=== PATIENT | male | born 1950 | race Caucasian/White ===

== ENCOUNTER → 2017-02-20 | Outpatient (CLI) | payer MEDICARE ==
[~2017-02-20] MED LIST: ALPR1TAB6 PO; AMIT25TA PO; CEFD300C37 PO; DIPH25CA61 PO; GABA300C10 PO; LACT1CAP24 PO; LISI-170 PO; METR500T PO; OXYC1TAB9 PO; PANT40TA5 PO; PRAV40TA2 PO; SIME125T10 PO; STEROID INHALER INH
== END | disposition home or self-care (01) ==
LOC: CFH 09:37
PROVIDERS: ATTEND Internal Medicine Cardiovascular Disease
DX: I08.3 Combined rheumatic disorders of mitral, aortic and tricuspid valves (principal); I10 Essential (primary) hypertension; E78.5 Hyperlipidemia, unspecified
CPT/HCPCS: 93306

== ENCOUNTER → 2018-04-16 | Outpatient (CLI) | payer MEDICARE ==
[~2018-04-16] MED LIST changes: +ATOR10TA9 PO; +OXYC-432 PO; -OXYC1TAB9 PO; +RANI300T PO; +TEMA15CA PO
== END | disposition home or self-care (01) ==
LOC: CFH 13:07
PROVIDERS: ATTEND Internal Medicine
DX: M48.061 Spinal stenosis, lumbar region without neurogenic claudication (principal); M47.896 Other spondylosis, lumbar region; Z98.1 Arthrodesis status
CPT/HCPCS: 72148

== ENCOUNTER → 2018-05-22 | Outpatient (CLI) | payer MEDICARE ==
[~2018-05-22] MED LIST changes: +ALPR2TAB2 PO
[2018-05-22 14:06] LABS: MICROSCOPIC NOT IND
[2018-05-22 14:11] LABS: CULTURE INDICATED? NO
[2018-05-22 14:18] LABS: HCT (SEDRATE) 49.5 % (39.2-51.8)
[2018-05-22 14:19] LABS: BASOPHILS # (AUTO) 0.04 x10^3/uL (0-0.1); BASOPHILS % (AUTO) 1 % (0-1); EOSINOPHILS # (AUTO) 0.19 x10^3/uL (0-0.4); EOSINOPHILS % (AUTO) 3 % (1-7); INTERNATIONAL NORMALIZED RATIO 0.95 (0.93-1.1); LYMPHOCYTES # (AUTO) 2.72 x10^3/uL (1-3.4); LYMPHOCYTES % (AUTO) 36 % (22-44); MD NO; MEAN CORPUSCULAR HEMOGLOBIN 31.5 pg (27.5-34.5); MEAN CORPUSCULAR HGB CONC 34.1 g/dL (33.2-36.2); MEAN CORPUSCULAR VOLUME 92.3 fL (81-97); MONOCYTES # (AUTO) 0.67 x10^3/uL (0.2-0.8); MONOCYTES % (AUTO) 9 % (2-9); NEUTROPHILS # (AUTO) 3.97 x10^3/uL (1.8-6.8); NEUTROPHILS % (AUTO) 52 % (42-75); PLATELET COUNT 208 x10^3/uL (130-400); PROTHROMBIN TIME 9.8 Seconds (9.6-11.5); RED BLOOD COUNT 5.39 x10^6/uL (4.38-5.82); RED CELL DISTRIBUTION WIDTH 14.1 % (9.4-14.8)
[2018-05-22 14:21] LABS: ALANINE AMINOTRANSFERASE 25 U/L (12-78); ALBUMIN 4.3 g/dL (3.4-5.0); ANION GAP 7 mmol/L (5-15); CALCIUM 8.9 mg/dL (8.5-10.1); CHLORIDE 110 mmol/L (98-107); CREATININE 1.14 mg/dL (0.7-1.3)
[2018-05-22 14:23] LABS: ALKALINE PHOSPHATASE 84 U/L (45-117); BILIRUBIN,TOTAL 0.9 mg/dL (0.2-1.0); TOTAL PROTEIN 7.6 g/dL (6.4-8.2)
== END | disposition home or self-care (01) ==
LOC: STAR 12:29
PROVIDERS: ATTEND Orthopaedic Surgery Orthopaedic Surgery of the Spine
DX: Z01.818 Encounter for other preprocedural examination (principal); J98.4 Other disorders of lung; M43.16 Spondylolisthesis, lumbar region; M48.061 Spinal stenosis, lumbar region without neurogenic claudication; J98.6 Disorders of diaphragm; I49.3 Ventricular premature depolarization
CPT/HCPCS: 36415; 71046; 80053; 81003; 85025; 85610; 85651; 85730; 93005

== ENCOUNTER → 2018-05-22 | Outpatient (CLI) | payer MEDICARE ==
[2018-05-22 14:31] LABS: THYROID STIMULATING HORMONE 2.48 mIU/L (0.358-3.740)
[2018-05-22 15:00] LABS: LDL/HDL RATIO 1.9 (0.5-3.0)
[2018-05-22 15:01] LABS: CHOL/HDL RATIO 3.3
== END | disposition home or self-care (01) ==
LOC: LAB 12:59
PROVIDERS: ATTEND Internal Medicine
DX: E07.9 Disorder of thyroid, unspecified (principal); I10 Essential (primary) hypertension; E78.5 Hyperlipidemia, unspecified
CPT/HCPCS: 36415; 80061; 84439; 84443

== ENCOUNTER 2018-06-01 08:28 | Inpatient (IN) | payer MEDICARE ==
[~2018-06-01] VITALS: Ht 180.3 cm; Wt 86.6 kg
[~2018-06-01 08:28] MED LIST changes: +KETAMINE 50 MG/ML, 10ML ONE
[2018-06-01] MEDS ORDERED: HYDR-3245 PO (09:34)
[2018-06-01] MEDS ORDERED: FENTANYL PF 100 MCG/2ML ONE ×4 (09:50→16:41)
[2018-06-01] MEDS ORDERED: MIDAZOLAM 1 MG/ML, 5ML ONE (09:50)
[2018-06-01] MEDS ORDERED: NEOSTIGMINE 1 MG/ML, 10ML ONE (09:52)
[2018-06-01] MEDS ORDERED: PROPOFOL 10 MG/ML, 20ML ONE (09:52)
[2018-06-01] MEDS ORDERED: GLYCOPYRROLATE 0.2MG/1ML, 5ML ONE (09:52)
[2018-06-01] MEDS ORDERED: CEFAZOLIN 1,000 MG ONE (09:52)
[2018-06-01] MEDS ORDERED: SUCCINYLCHOLINE 20 MG/ML, 10ML ONE (09:52)
[2018-06-01] MEDS ORDERED: DEXAMETHASONE 4 MG/ML, 1ML ONE (09:52)
[2018-06-01] MEDS ORDERED: ROCURONIUM 10MG/ML,5ML ONE (09:52)
[2018-06-01] MEDS ORDERED: PROPOFOL 50 ML ONE ×5 (09:54→14:50)
[2018-06-01] MEDS ORDERED: ACETAMINOPHEN 500 MG TABLET PO ONE (10:00)
[2018-06-01] MEDS ORDERED: DIAZEPAM 5 MG TABLET PO ONE (10:00)
[2018-06-01] MEDS ORDERED: ONDANSETRON ODT 8 MG PO ONE (10:00)
[2018-06-01] MEDS ORDERED: LACTATED RINGERS 1,000 ML IV SCH (10:00)
[2018-06-01] MEDS ORDERED: GABAPENTIN 300 MG CAPSULE PO ONE (10:00)
[2018-06-01] MEDS ORDERED: TAMSULOSIN 0.4 MG CAP.ER.24H ONE (10:06)
[2018-06-01] MEDS ORDERED: TAMSULOSIN 0.4 MG CAP.ER.24H PO ONE (10:30)
[2018-06-01] MEDS ORDERED: LIDOCAINE-MPF 2% ,5ML ONE ×2 (10:53→14:51)
[2018-06-01] MEDS ORDERED: EPHEDRINE 50 MG/ML, 1ML ONE ×2 (10:53→11:21)
[2018-06-01] MEDS ORDERED: PHENYLEPHRINE 10 MG/ML ONE (10:53)
[2018-06-01] MEDS ORDERED: BUPIVACAINE/PF-EPI 0.5% 1:200K ONE (11:28)
[2018-06-01] MEDS ORDERED: TRANEXAMIC ACID 100 MG/ML, 10ML ONE (11:28)
[2018-06-01] MEDS ORDERED: THROMBIN 5,000 UNIT VIAL TP ONE (11:28)
[2018-06-01] MEDS ORDERED: VANCOMYCIN 1,000 MG ONE (11:28)
[2018-06-01] MEDS ORDERED: BACITRACIN 50,000 UNIT ONE (11:29)
[2018-06-01] MEDS ORDERED: PROMETHAZINE 25 MG/ML, 1ML IV PRN (12:30)
[2018-06-01] MEDS ORDERED: HYDROmorphone 1 MG/ML, 1ML IV PRN (12:30)
[2018-06-01] MEDS ORDERED: SCOPOLAMINE PATCH, 1.5MG PATCH.TD72 TD PRN (12:30)
[2018-06-01] MEDS ORDERED: LABETALOL 5MG/ML, 20ML IV PRN ×2 (12:30→19:30)
[2018-06-01] MEDS ORDERED: LORazepam 2 MG/ML, 1ML IVPush PRN (12:30)
[2018-06-01] MEDS ORDERED: MIDAZOLAM 1 MG/ML, 2ML IV PRN (12:30)
[2018-06-01] MEDS ORDERED: ALBUTEROL/IPRATROPIUM 2.5MG/0.5MG, 3 ML NPPB PRN (12:30)
[2018-06-01] MEDS ORDERED: MEPERIDINE/PF 25MG/0.5ML IVPush PRN (12:30)
[2018-06-01] MEDS ORDERED: OXYcodone 5 MG/5 ML ORAL.SOL UDC PO PRN (12:30)
[2018-06-01] MEDS ORDERED: ONDANSETRON 2MG/ML, 2ML IV PRN (12:30)
[2018-06-01] MEDS ORDERED: hydrALAzine 20 MG/ML, 1ML IV PRN (12:30)
[2018-06-01] MEDS ORDERED: EPHEDRINE 50 MG/ML, 1ML IVPush PRN (12:30)
[2018-06-01] MEDS ORDERED: LIDOCAINE GEL 2%, 5ML ONE (14:51)
[2018-06-01] MEDS ORDERED: OXYcodone 5 MG/5 ML ORAL.SOL UDC ONE (16:41)
[2018-06-01] MEDS: FENTANYL PF 100 MCG/2ML IV PRN ×2 (16:45→17:05)
[2018-06-01] MEDS ORDERED: TRANEXAMIC ACID 100 MG/ML, 10ML IVPB ONE (18:00)
[2018-06-01 19:13] VITALS: BP 100/68
[2018-06-01] MEDS ORDERED: SODIUM CHLORIDE 0.9% 1,000 ML IV PRN (19:30)
[2018-06-01] MEDS ORDERED: DIPHENHYDRAMINE 50 MG/ML, 1ML IM PRN (19:30)
[2018-06-01] MEDS ORDERED: PROMETHAZINE 25 MG/ML, 1ML IM PRN (19:30)
[2018-06-01] MEDS ORDERED: BISACODYL 10 MG SUPP PR PRN (19:30)
[2018-06-01] MEDS ORDERED: morphine SULFATE 10 MG/ML, 1ML IV PRN (19:30)
[2018-06-01] MEDS ORDERED: DIAZEPAM 5 MG/ML, 2ML IV PRN (19:30)
[2018-06-01] MEDS ORDERED: KETOROLAC 30 MG/1 ML IM PRN (19:30)
[2018-06-01] MEDS ORDERED: KETOROLAC 30 MG/1 ML IV ONE (19:30)
[2018-06-01] MEDS ORDERED: ACETAMINOPHEN 650 MG SUPP PR PRN (19:30)
[2018-06-01] MEDS ORDERED: DIPHENHYDRAMINE 50 MG/ML, 1ML IVPush PRN (19:30)
[2018-06-01] MEDS ORDERED: TRANEXAMIC ACID 1,000 MG in SODIUM CHLORIDE 0.9% 100 ML IV ONE (20:00)
[2018-06-01] MEDS: ONDANSETRON 2MG/ML, 2ML IV PRN (20:39)
[2018-06-01] MEDS ORDERED: ZOLPIDEM 5MG TABLET PO PRN (21:00)
[2018-06-01] MEDS: ALPRazolam 1MG TABLET PO SCH (21:00)
[2018-06-01] MEDS: TEMAZEPAM 15 MG CAPSULE PO SCH (21:00)
[2018-06-01] MEDS: CEFAZOLIN PMX 1GM/50ML 50 ML IVPB SCH (22:14)
[2018-06-01] MEDS: GABAPENTIN 300 MG CAPSULE PO SCH (22:22)
[2018-06-01] MEDS: ATORVASTATIN 10 MG TABLET PO SCH (22:22)
[2018-06-01] MEDS: DEXAMETHASONE 4 MG/ML, 1ML IVPush PRN (22:22)
[2018-06-01] MEDS: ACETAMINOPHEN 500 MG TABLET PO PRN (22:23)
[2018-06-01] MEDS: OXYcodone IR 5MG TABLET PO PRN (22:23)
[2018-06-01] MEDS: D5%-0.9% NACL+KCL 20MEQ 1,000 ML IV SCH (22:23)
[2018-06-02 00:48] VITALS: BP 106/66
[2018-06-02] MEDS: OXYcodone IR 5MG TABLET PO PRN ×2 (02:35→16:07)
[2018-06-02 03:55] VITALS: BP 123/72
[2018-06-02] MEDS: CEFAZOLIN PMX 1GM/50ML 50 ML IVPB SCH (04:19)
[2018-06-02 05:33] LABS: BASOPHILS # (AUTO) 0.02 x10^3/uL (0-0.1); BASOPHILS % (AUTO) 0 % (0-1); EOSINOPHILS % (AUTO) 0 % (1-7); LYMPHOCYTES # (AUTO) 1.06 x10^3/uL (1-3.4); LYMPHOCYTES % (AUTO) 10 % (22-44); MD NO; MEAN CORPUSCULAR HEMOGLOBIN 30.8 pg (27.5-34.5); MEAN CORPUSCULAR HGB CONC 33.8 g/dL (33.2-36.2); MEAN CORPUSCULAR VOLUME 91.1 fL (81-97); MEAN PLATELET VOLUME 7.9 fL (7.4-10.4); MONOCYTES # (AUTO) 0.52 x10^3/uL (0.2-0.8); MONOCYTES % (AUTO) 5 % (2-9); NEUTROPHILS # (AUTO) 9.26 x10^3/uL (1.8-6.8); NEUTROPHILS % (AUTO) 85 % (42-75); PLATELET COUNT 184 x10^3/uL (130-400); RED BLOOD COUNT 4.04 x10^6/uL (4.38-5.82); RED CELL DISTRIBUTION WIDTH 14.4 % (9.4-14.8)
[2018-06-02 06:50] VITALS: BP 121/70
[2018-06-02] MEDS: DEXAMETHASONE 4 MG/ML, 1ML IVPush PRN ×2 (07:36→16:07)
[2018-06-02] MEDS: ALPRazolam 1MG TABLET PO SCH ×2 (09:00→20:56)
[2018-06-02] MEDS: GABAPENTIN 300 MG CAPSULE PO SCH ×5 (09:31→20:55)
[2018-06-02] MEDS: ACETAMINOPHEN 500 MG TABLET PO PRN (09:31)
[2018-06-02] MEDS: LISINOPRIL 20 MG TABLET PO SCH (09:32)
[2018-06-02] MEDS: SENNA/DOCUSATE TABLET PO SCH (09:32)
[2018-06-02] MEDS: D5%-0.9% NACL+KCL 20MEQ 1,000 ML IV SCH ×2 (10:46→20:00)
[2018-06-02 15:24] VITALS: BP 100/58
[2018-06-02 20:45] VITALS: BP 107/63
[2018-06-02] MEDS: TEMAZEPAM 15 MG CAPSULE PO SCH (20:55)
[2018-06-02] MEDS: ATORVASTATIN 10 MG TABLET PO SCH (20:55)
[2018-06-03 01:38] VITALS: BP 111/69
[2018-06-03] MEDS: OXYcodone IR 5MG TABLET PO PRN ×4 (01:42→21:47)
[2018-06-03] MEDS: DEXAMETHASONE 4 MG/ML, 1ML IVPush PRN (01:43)
[2018-06-03 05:38] LABS: MEAN CORPUSCULAR HEMOGLOBIN 31.5 pg (27.5-34.5); MEAN CORPUSCULAR HGB CONC 33.8 g/dL (33.2-36.2); MEAN CORPUSCULAR VOLUME 93.3 fL (81-97); MEAN PLATELET VOLUME 8.3 fL (7.4-10.4); PLATELET COUNT 178 x10^3/uL (130-400); RED CELL DISTRIBUTION WIDTH 14.4 % (9.4-14.8)
[2018-06-03] MEDS: D5%-0.9% NACL+KCL 20MEQ 1,000 ML IV SCH ×2 (06:00→16:18)
[2018-06-03 06:11] LABS: BASOPHILS # (AUTO) 0.01 x10^3/uL (0-0.1); BASOPHILS % (AUTO) 0 % (0-1); EOSINOPHILS % (AUTO) 0 % (1-7); LYMPHOCYTES # (AUTO) 1.06 x10^3/uL (1-3.4); LYMPHOCYTES % (AUTO) 8 % (22-44); MD SCAN; MONOCYTES # (AUTO) 0.91 x10^3/uL (0.2-0.8); MONOCYTES % (AUTO) 7 % (2-9); NEUTROPHILS # (AUTO) 11.02 x10^3/uL (1.8-6.8); NEUTROPHILS % (AUTO) 85 % (42-75)
[2018-06-03] MEDS: GABAPENTIN 300 MG CAPSULE PO SCH ×5 (06:24→21:46)
[2018-06-03 07:11] VITALS: BP 100/65
[2018-06-03] MEDS: MAGNESIUM HYDROXIDE 8%, 30ML UDC PO PRN (09:14)
[2018-06-03] MEDS: SENNA/DOCUSATE TABLET PO SCH (09:15)
[2018-06-03] MEDS: LISINOPRIL 20 MG TABLET PO SCH (09:15)
[2018-06-03] MEDS: ALPRazolam 1MG TABLET PO SCH ×2 (09:25→21:00)
[2018-06-03] MEDS ORDERED: SODIUM CHLORIDE 0.9% 1,000ML IVBOLUS ONE (12:30)
[2018-06-03] MEDS: DIAZEPAM 5 MG TABLET PO PRN ×2 (12:45→21:47)
[2018-06-03 14:15] VITALS: BP 113/69
[2018-06-03 19:51] VITALS: BP 124/81
[2018-06-03] MEDS: ATORVASTATIN 10 MG TABLET PO SCH (21:46)
[2018-06-03] MEDS: TEMAZEPAM 15 MG CAPSULE PO SCH (21:46)
[2018-06-04 01:20] VITALS: BP 109/71
[2018-06-04] MEDS: D5%-0.9% NACL+KCL 20MEQ 1,000 ML IV SCH (02:00)
[2018-06-04] MEDS: DIAZEPAM 5 MG TABLET PO PRN (04:00)
[2018-06-04] MEDS: OXYcodone IR 5MG TABLET PO PRN ×4 (04:00→23:09)
[2018-06-04 04:54] LABS: BASOPHILS # (AUTO) 0.05 x10^3/uL (0-0.1); BASOPHILS % (AUTO) 0 % (0-1); EOSINOPHILS # (AUTO) 0.01 x10^3/uL (0-0.4); EOSINOPHILS % (AUTO) 0 % (1-7); LYMPHOCYTES # (AUTO) 2.34 x10^3/uL (1-3.4); LYMPHOCYTES % (AUTO) 22 % (22-44); MD NO; MEAN CORPUSCULAR HEMOGLOBIN 30.8 pg (27.5-34.5); MEAN CORPUSCULAR HGB CONC 33.4 g/dL (33.2-36.2); MEAN CORPUSCULAR VOLUME 92.2 fL (81-97); MEAN PLATELET VOLUME 7.8 fL (7.4-10.4); MONOCYTES # (AUTO) 1.13 x10^3/uL (0.2-0.8); MONOCYTES % (AUTO) 10 % (2-9); NEUTROPHILS # (AUTO) 7.32 x10^3/uL (1.8-6.8); NEUTROPHILS % (AUTO) 67 % (42-75); PLATELET COUNT 185 x10^3/uL (130-400); RED BLOOD COUNT 4.02 x10^6/uL (4.38-5.82); RED CELL DISTRIBUTION WIDTH 14.1 % (9.4-14.8)
[2018-06-04] MEDS: GABAPENTIN 300 MG CAPSULE PO SCH ×5 (06:01→20:44)
[2018-06-04 07:37] VITALS: BP 137/90
[2018-06-04 08:54] LABS: ALANINE AMINOTRANSFERASE 37 U/L (12-78); ALBUMIN 3.2 g/dL (3.4-5.0); ANION GAP 7 mmol/L (5-15); CALCIUM 8.4 mg/dL (8.5-10.1); CHLORIDE 108 mmol/L (98-107); CREATININE 1.05 mg/dL (0.7-1.3)
[2018-06-04 08:55] LABS: ALKALINE PHOSPHATASE 65 U/L (45-117); BILIRUBIN,TOTAL 0.8 mg/dL (0.2-1.0); TOTAL PROTEIN 6.9 g/dL (6.4-8.2)
[2018-06-04] MEDS: ALPRazolam 1MG TABLET PO SCH (09:00)
[2018-06-04 09:29] LABS: TROPONIN I < 0.015 ng/mL (0.000-0.045)
[2018-06-04] MEDS ORDERED: NALOXONE 0.4 MG/ML, 1ML IVPush PRN (10:30)
[2018-06-04] MEDS ORDERED: OMNIPAQUE 350 MG/ML, 100ML BOTTLE ONE (10:58)
[2018-06-04] MEDS: SENNA/DOCUSATE TABLET PO SCH (11:03)
[2018-06-04] MEDS: LISINOPRIL 20 MG TABLET PO SCH (11:03)
[2018-06-04] MEDS ORDERED: ONDANSETRON 4 MG TABLET ONE (13:01)
[2018-06-04] MEDS: ONDANSETRON 2MG/ML, 2ML IV PRN (13:10)
[2018-06-04 14:00] VITALS: BP_SYST 107; BP_SYST 111; BP_SYST 98; BP_DIAS 68; BP_DIAS 69; BP_DIAS 71
[2018-06-04] MEDS: SODIUM CHLORIDE 0.9% 1,000 ML IV SCH ×2 (16:00→22:13)
[2018-06-04] MEDS ORDERED: NALOXONE 1 MG/ML, 2ML ONE (16:11)
[2018-06-04 17:27] VITALS: BP 88/52
[2018-06-04] MEDS: ATORVASTATIN 10 MG TABLET PO SCH (20:45)
[2018-06-05] MEDS: OXYcodone IR 5MG TABLET PO PRN ×3 (02:39→22:08)
[2018-06-05 04:46] LABS: BASOPHILS # (AUTO) 0.03 x10^3/uL (0-0.1); BASOPHILS % (AUTO) 0 % (0-1); EOSINOPHILS # (AUTO) 0.16 x10^3/uL (0-0.4); EOSINOPHILS % (AUTO) 2 % (1-7); LYMPHOCYTES % (AUTO) 29 % (22-44); MD NO; MEAN CORPUSCULAR HEMOGLOBIN 31.2 pg (27.5-34.5); MEAN CORPUSCULAR HGB CONC 33.8 g/dL (33.2-36.2); MEAN CORPUSCULAR VOLUME 92.3 fL (81-97); MEAN PLATELET VOLUME 7.8 fL (7.4-10.4); MONOCYTES # (AUTO) 0.83 x10^3/uL (0.2-0.8); MONOCYTES % (AUTO) 10 % (2-9); NEUTROPHILS # (AUTO) 4.85 x10^3/uL (1.8-6.8); NEUTROPHILS % (AUTO) 59 % (42-75); PLATELET COUNT 177 x10^3/uL (130-400); RED BLOOD COUNT 3.84 x10^6/uL (4.38-5.82); RED CELL DISTRIBUTION WIDTH 14.3 % (9.4-14.8)
[2018-06-05 04:54] LABS: CHLORIDE 109 mmol/L (98-107)
[2018-06-05] MEDS: SODIUM CHLORIDE 0.9% 1,000 ML IV SCH ×4 (04:59→23:57)
[2018-06-05 05:05] LABS: ALANINE AMINOTRANSFERASE 31 U/L (12-78); ALBUMIN 2.6 g/dL (3.4-5.0); ALKALINE PHOSPHATASE 52 U/L (45-117); ANION GAP 5 mmol/L (5-15); BILIRUBIN,TOTAL 0.7 mg/dL (0.2-1.0); CALCIUM 7.5 mg/dL (8.5-10.1); TOTAL PROTEIN 5.6 g/dL (6.4-8.2)
[2018-06-05] MEDS: GABAPENTIN 300 MG CAPSULE PO SCH ×5 (06:25→22:08)
[2018-06-05] MEDS ORDERED: ONDANSETRON 4 MG TABLET ONE (07:23)
[2018-06-05] MEDS: SENNA/DOCUSATE TABLET PO SCH (07:52)
[2018-06-05] MEDS ORDERED: ONDANSETRON ODT 4 MG PO PRN (08:00)
[2018-06-05 09:37] LABS: TROPONIN I < 0.015 ng/mL (0.000-0.045)
[2018-06-05 14:44] VITALS: BP 111/74
[2018-06-05 20:03] VITALS: BP 123/75
[2018-06-05] MEDS: ATORVASTATIN 10 MG TABLET PO SCH (22:08)
[2018-06-06 01:55] VITALS: BP 115/76
[2018-06-06 05:40] LABS: BASOPHILS # (AUTO) 0.01 x10^3/uL (0-0.1); BASOPHILS % (AUTO) 0 % (0-1); EOSINOPHILS # (AUTO) 0.22 x10^3/uL (0-0.4); EOSINOPHILS % (AUTO) 3 % (1-7); LYMPHOCYTES # (AUTO) 2.27 x10^3/uL (1-3.4); LYMPHOCYTES % (AUTO) 30 % (22-44); MD NO; MEAN CORPUSCULAR HEMOGLOBIN 31.3 pg (27.5-34.5); MEAN CORPUSCULAR HGB CONC 34.1 g/dL (33.2-36.2); MEAN CORPUSCULAR VOLUME 91.8 fL (81-97); MEAN PLATELET VOLUME 7.7 fL (7.4-10.4); MONOCYTES # (AUTO) 0.81 x10^3/uL (0.2-0.8); MONOCYTES % (AUTO) 11 % (2-9); NEUTROPHILS # (AUTO) 4.39 x10^3/uL (1.8-6.8); NEUTROPHILS % (AUTO) 57 % (42-75); PLATELET COUNT 202 x10^3/uL (130-400); RED CELL DISTRIBUTION WIDTH 13.6 % (9.4-14.8)
[2018-06-06 05:47] LABS: CALCIUM 7.9 mg/dL (8.5-10.1); CREATININE 0.77 mg/dL (0.7-1.3)
[2018-06-06 06:00] LABS: ANION GAP 3 mmol/L (5-15); CHLORIDE 109 mmol/L (98-107)
[2018-06-06] MEDS: GABAPENTIN 300 MG CAPSULE PO SCH ×5 (06:31→23:36)
[2018-06-06] MEDS: MAGNESIUM HYDROXIDE 8%, 30ML UDC PO PRN (06:31)
[2018-06-06] MEDS: SODIUM CHLORIDE 0.9% 1,000 ML IV SCH ×3 (06:36→22:04)
[2018-06-06 06:55] VITALS: BP 133/83
[2018-06-06 06:56] VITALS: BP 121/80
[2018-06-06 06:58] VITALS: BP 112/79
[2018-06-06] MEDS: SENNA/DOCUSATE TABLET PO SCH (09:00)
[2018-06-06 14:54] VITALS: BP 102/77
[2018-06-06 19:53] VITALS: BP 130/73
[2018-06-06] MEDS ORDERED: CALCIUM CARBONATE 500 MG TAB.CHEW PO PRN (20:30)
[2018-06-06] MEDS: ATORVASTATIN 10 MG TABLET PO SCH (22:02)
[2018-06-06] MEDS: TEMAZEPAM 15 MG CAPSULE PO PRN (23:36)
[2018-06-07 01:58] VITALS: BP 128/71
[2018-06-07 05:33] LABS: BASOPHILS # (AUTO) 0.01 x10^3/uL (0-0.1); BASOPHILS % (AUTO) 0 % (0-1); EOSINOPHILS # (AUTO) 0.18 x10^3/uL (0-0.4); EOSINOPHILS % (AUTO) 3 % (1-7); LYMPHOCYTES # (AUTO) 1.69 x10^3/uL (1-3.4); LYMPHOCYTES % (AUTO) 24 % (22-44); MD NO; MEAN CORPUSCULAR HEMOGLOBIN 30.5 pg (27.5-34.5); MEAN CORPUSCULAR HGB CONC 33.4 g/dL (33.2-36.2); MEAN CORPUSCULAR VOLUME 91.5 fL (81-97); MEAN PLATELET VOLUME 7.5 fL (7.4-10.4); MONOCYTES # (AUTO) 0.82 x10^3/uL (0.2-0.8); MONOCYTES % (AUTO) 11 % (2-9); NEUTROPHILS % (AUTO) 63 % (42-75); PLATELET COUNT 200 x10^3/uL (130-400); RED BLOOD COUNT 3.77 x10^6/uL (4.38-5.82); RED CELL DISTRIBUTION WIDTH 13.5 % (9.4-14.8)
[2018-06-07 05:43] LABS: ANION GAP 3 mmol/L (5-15); CHLORIDE 110 mmol/L (98-107); CREATININE 0.77 mg/dL (0.7-1.3)
[2018-06-07] MEDS: GABAPENTIN 300 MG CAPSULE PO SCH ×5 (06:43→20:14)
[2018-06-07] MEDS: SODIUM CHLORIDE 0.9% 1,000 ML IV SCH ×2 (06:43→12:07)
[2018-06-07 07:17] VITALS: BP 121/79
[2018-06-07] MEDS: SENNA/DOCUSATE TABLET PO SCH (09:00)
[2018-06-07] MEDS: DIPHENHYDRAMINE 50 MG CAPSULE PO PRN (11:29)
[2018-06-07] MEDS: OXYcodone IR 5MG TABLET PO PRN (12:07)
[2018-06-07 14:09] VITALS: BP 134/78
[2018-06-07 19:30] VITALS: BP 125/80
[2018-06-07] MEDS: ATORVASTATIN 10 MG TABLET PO SCH (20:14)
[2018-06-07] MEDS: TEMAZEPAM 15 MG CAPSULE PO PRN (23:53)
[2018-06-08 02:51] VITALS: BP 119/75
[2018-06-08] MEDS: DIPHENHYDRAMINE 50 MG CAPSULE PO PRN (03:51)
[2018-06-08] MEDS: GABAPENTIN 300 MG CAPSULE PO SCH ×2 (06:07→11:05)
[2018-06-08 06:55] VITALS: BP 116/74
[2018-06-08] MEDS: SENNA/DOCUSATE TABLET PO SCH (08:39)
== END 2018-06-08 13:38 | disposition home or self-care (01) | DRG 459 ==
LOC: ORIP 08:28 → 4NOR 17:50 → CCU 06-04 08:38 → 4NOR 06-05 10:29 → DCLOUNGE 06-08 13:25
PROVIDERS: ADMIT Orthopaedic Surgery Orthopaedic Surgery of the Spine; ATTEND Orthopaedic Surgery Orthopaedic Surgery of the Spine
PROC: 00QT0ZZ Repair Spinal Meninges, Open Approach (ICD-10-PCS; 2018-06-01)
PROC: 01NB0ZZ Release Lumbar Nerve, Open Approach (ICD-10-PCS; 2018-06-01)
PROC: 0SB20ZZ Excision of Lumbar Vertebral Disc, Open Approach (ICD-10-PCS; 2018-06-01)
PROC: 4A11X4G Monitoring of Peripheral Nervous Electrical Activity, Intraoperative, External Approach (ICD-10-PCS; 2018-06-01)
PROC: 07DR3ZZ Extraction of Iliac Bone Marrow, Percutaneous Approach (ICD-10-PCS; 2018-06-01)
PROC: 0SG00AJ Fusion of Lumbar Vertebral Joint with Interbody Fusion Device, Posterior Approach, Anterior Column, Open Approach (ICD-10-PCS; principal; 2018-06-01 10:30)
DX: M43.16 Spondylolisthesis, lumbar region (principal); G93.40 Encephalopathy, unspecified; J96.01 Acute respiratory failure with hypoxia; M48.061 Spinal stenosis, lumbar region without neurogenic claudication; M51.26 Other intervertebral disc displacement, lumbar region; M51.16 Intervertebral disc disorders with radiculopathy, lumbar region; E78.5 Hyperlipidemia, unspecified; I95.1 Orthostatic hypotension; Z87.442 Personal history of urinary calculi; I10 Essential (primary) hypertension; F41.1 Generalized anxiety disorder; I25.10 Atherosclerotic heart disease of native coronary artery without angina pectoris; N40.0 Benign prostatic hyperplasia without lower urinary tract symptoms; G47.33 Obstructive sleep apnea (adult) (pediatric)
CPT/HCPCS: 36415; 70450; 71275; 72100; 80048; 80053; 83735; 84100; 84484; 85025; 87081; 93005; 93306; 93880; C1713; G0378; J0690; J1100; J1885; J2250; J2405; J2550; J2704; J2710; J3010; J3360; J3370; J3490; Q0162; Q9967; C1760; C1762; C1763; C9362; J0330; J2310; J2370; J3480; J7030; J7120

== ENCOUNTER → 2019-03-29 | Outpatient (CLI) | payer MEDICARE ==
[~2019-03-29] MED LIST changes: +HYDR-3245 PO; -KETAMINE 50 MG/ML, 10ML ONE
== END | disposition home or self-care (01) ==
LOC: CVU 10:31
PROVIDERS: ATTEND Internal Medicine Cardiovascular Disease
DX: I07.1 Rheumatic tricuspid insufficiency (principal); I10 Essential (primary) hypertension
CPT/HCPCS: 0399T; 93306

== ENCOUNTER 2019-05-14 10:04 | Outpatient (CLI) | payer MEDICARE | END 2019-05-14 23:59 | disposition home or self-care (01) | LOC: STAR 10:04 | PROVIDERS: ATTEND Orthopaedic Surgery Orthopaedic Surgery of the Spine | DX: Z01.818 Encounter for other preprocedural examination (principal); T85.898A Other specified complication of other internal prosthetic devices, implants and grafts, initial encounter; M48.061 Spinal stenosis, lumbar region without neurogenic claudication; R94.31 Abnormal electrocardiogram [ECG] [EKG]; J98.4 Other disorders of lung; I25.2 Old myocardial infarction; R79.89 Other specified abnormal findings of blood chemistry | CPT/HCPCS: 36415; 71046; 80053; 83036; 85025; 85610; 85651; 85730; 93005 ==

== ENCOUNTER 2019-05-24 10:00 | Inpatient (IN) | payer MEDICARE ==
[~2019-05-24] VITALS: Ht 180.3 cm; Wt 99.0 kg
[~2019-05-24 10:00] MED LIST changes: +ALPR1TAB2 PO; +BACITRACIN 50,000 UNIT ONE; +BUPIVACAINE/EPI 0.5% 1:200K ONE; +CYCL-259 PO; +HYDR10TA4 PO; +LACT1CAP35 PO; +SIME250C PO; +THROMBIN (RECOMBINANT) 20,000 UNIT VIAL TP ONE; +TRANEXAMIC ACID 100 MG/ML, 10ML ONE; +VANCOMYCIN 1,000 MG ONE
[2019-05-24] MEDS ORDERED: VANCOMYCIN PMX 1GM/200ML 200 ML IV STA (10:18)
[2019-05-24] MEDS ORDERED: LACTATED RINGERS 1,000 ML IV SCH (10:22)
[2019-05-24] MEDS ORDERED: MIDAZOLAM 1 MG/ML, 2ML ONE (12:30)
[2019-05-24] MEDS ORDERED: FENTANYL PF 250 MCG/5ML ONE (12:30)
[2019-05-24] MEDS ORDERED: PROPOFOL 50 ML ONE ×2 (12:33→13:54)
[2019-05-24] MEDS ORDERED: REMIFENTANIL 2 MG ONE (12:36)
[2019-05-24] MEDS ORDERED: GABAPENTIN 300 MG CAPSULE ONE ×2 (12:42)
[2019-05-24] MEDS ORDERED: TAMSULOSIN 0.4 MG CAP.ER.24H ONE ×2 (12:42)
[2019-05-24] MEDS ORDERED: methylPREDNISolone *ACETATE* 40 MG/ML ONE (12:59)
[2019-05-24] MEDS ORDERED: BUPIVACAINE/EPI 0.5% 1:200K ONE (12:59)
[2019-05-24] MEDS ORDERED: METHOCARBAMOL 1,000 MG in DEXTROSE 5% 100 ML IV PRN ×2 (13:30→15:00)
[2019-05-24] MEDS ORDERED: FENTANYL PF 100 MCG/2ML IV PRN (13:30)
[2019-05-24] MEDS ORDERED: PROMETHAZINE 25 MG/ML, 1ML IV PRN (13:30)
[2019-05-24] MEDS ORDERED: HALOPERIDOL 5 MG/ML IV PRN (13:30)
[2019-05-24] MEDS ORDERED: hydrALAzine 20 MG/ML, 1ML IV PRN (13:30)
[2019-05-24] MEDS ORDERED: MEPERIDINE/PF 25MG/ML,1ML IVPush PRN (13:30)
[2019-05-24] MEDS ORDERED: HYDROmorphone 2 MG/ML, 1ML IVPush PRN (13:30)
[2019-05-24] MEDS ORDERED: BUPIVACAINE/EPI 0.5% 1:200K INFIL ONE (13:35)
[2019-05-24] MEDS ORDERED: DEXAMETHASONE 4 MG/ML, 1ML ONE (15:30)
[2019-05-24] MEDS ORDERED: PROPOFOL 10 MG/ML, 20ML ONE (15:30)
[2019-05-24] MEDS ORDERED: ROCURONIUM 10MG/ML,5ML ONE (15:30)
[2019-05-24] MEDS ORDERED: VASOPRESSIN 20 UNIT/ML, 1ML ONE (15:30)
[2019-05-24] MEDS ORDERED: ONDANSETRON 2MG/ML, 2ML ONE (15:30)
[2019-05-24] MEDS ORDERED: WATER-INJECTION,STERILE 10 ML IV ONE (15:30)
[2019-05-24] MEDS ORDERED: LIDOCAINE-MPF 2% ,5ML ONE (15:30)
[2019-05-24] MEDS ORDERED: CEFAZOLIN 1,000 MG ONE (15:30)
[2019-05-24] MEDS ORDERED: OXYcodone 5 MG/5 ML ORAL.SOL UDC ONE (16:13)
[2019-05-24] MEDS ORDERED: FENTANYL PF 100 MCG/2ML ONE (16:13)
[2019-05-24] MEDS: OXYcodone 5 MG/5 ML ORAL.SOL UDC PO PRN ×2 (16:23→18:25)
[2019-05-24] MEDS ORDERED: DIPHENHYDRAMINE 50 MG/ML, 1ML IM PRN (18:00)
[2019-05-24] MEDS ORDERED: ACETAMINOPHEN 650 MG SUPP PR PRN (18:00)
[2019-05-24] MEDS ORDERED: PHARMACY MAY ADJ FOR RENAL FX MC PRN (18:00)
[2019-05-24] MEDS ORDERED: PROMETHAZINE 25 MG/ML, 1ML IM PRN (18:00)
[2019-05-24] MEDS ORDERED: BISACODYL 10 MG SUPP PR PRN (18:00)
[2019-05-24] MEDS ORDERED: LORazepam 1MG TABLET PO PRN (18:00)
[2019-05-24] MEDS ORDERED: ACETAMINOPHEN 500 MG TABLET PO PRN (18:00)
[2019-05-24] MEDS ORDERED: DIAZEPAM 5 MG/ML, 2ML IV PRN (18:00)
[2019-05-24] MEDS ORDERED: ONDANSETRON 2MG/ML, 2ML IV PRN (18:00)
[2019-05-24] MEDS ORDERED: DIPHENHYDRAMINE 50 MG/ML, 1ML IVPush PRN (18:00)
[2019-05-24] MEDS ORDERED: MAGNESIUM HYDROXIDE 8%, 30ML UDC PO PRN (18:00)
[2019-05-24] MEDS ORDERED: morphine SULFATE 10 MG/ML, 1ML IV PRN (18:00)
[2019-05-24] MEDS ORDERED: KETOROLAC 30 MG/1 ML IV ONE (18:00)
[2019-05-24] MEDS ORDERED: DIPHENHYDRAMINE 50 MG CAPSULE PO PRN (18:00)
[2019-05-24] MEDS ORDERED: DEXAMETHASONE 4 MG/ML, 1ML IV PRN (18:00)
[2019-05-24] MEDS ORDERED: METHOCARBAMOL 1,000 MG in DEXTROSE 5% 100 ML IV ONE (18:00)
[2019-05-24] MEDS ORDERED: LABETALOL 5MG/ML, 20ML IV PRN (18:00)
[2019-05-24] MEDS ORDERED: OXYcodone IR 5MG TABLET PO PRN ×2 (18:00)
[2019-05-24] MEDS ORDERED: DIAZEPAM 5 MG TABLET PO PRN (18:00)
[2019-05-24] MEDS ORDERED: SODIUM CHLORIDE 0.9% 1,000 ML IV SCH (18:30)
[2019-05-24] MEDS ORDERED: MORPHINE 30MG/30ML PCA.SYR IV PRN (18:30)
[2019-05-24 18:57] VITALS: BP 111/68
[2019-05-24] MEDS ORDERED: GABAPENTIN 300 MG CAPSULE PO SCH ×2 (21:00)
[2019-05-24] MEDS: CYCLOBENZAPRINE 10 MG TABLET PO SCH (21:00)
[2019-05-24] MEDS ORDERED: ZOLPIDEM 5MG TABLET PO PRN (21:00)
[2019-05-24] MEDS ORDERED: hydrOXyzine 10MG TABLET PO SCH (21:00)
[2019-05-24] MEDS ORDERED: ALPRazolam 1MG TAB PO SCH (21:00)
[2019-05-24] MEDS: D5%-0.9% NACL+KCL 20MEQ 1,000 ML IV SCH (21:26)
[2019-05-24] MEDS: CEFAZOLIN PMX 1GM/50ML 50 ML IVPB SCH (21:26)
[2019-05-24] MEDS ORDERED: GABAPENTIN 300 MG CAPSULE PO ONE (23:00)
[2019-05-24 23:43] VITALS: BP 130/60
[2019-05-25] MEDS: hydrOXyzine 50MG TABLET PO SCH (00:07)
[2019-05-25] MEDS: KETOROLAC 30 MG/1 ML IM/IV SCH ×3 (00:07→16:07)
[2019-05-25 01:44] VITALS: BP 110/71
[2019-05-25] MEDS: METHOCARBAMOL 750 MG in DEXTROSE 5% 100 ML IV SCH ×3 (02:18→17:40)
[2019-05-25 03:59] VITALS: BP 109/70
[2019-05-25] MEDS: CEFAZOLIN PMX 1GM/50ML 50 ML IVPB SCH (05:00)
[2019-05-25] MEDS: GABAPENTIN 300 MG CAPSULE PO SCH ×4 (06:06→21:30)
[2019-05-25 06:07] LABS: BASOPHILS # (AUTO) 0.01 x10^3/uL (0-0.1); BASOPHILS % (AUTO) 0 % (0-1); EOSINOPHILS % (AUTO) 0 % (1-7); LYMPHOCYTES # (AUTO) 1.29 x10^3/uL (1-3.4); LYMPHOCYTES % (AUTO) 12 % (22-44); MD NO; MEAN CORPUSCULAR HEMOGLOBIN 30.8 pg (27.5-34.5); MEAN CORPUSCULAR HGB CONC 33.2 g/dL (33.2-36.2); MEAN CORPUSCULAR VOLUME 92.8 fL (81-97); MEAN PLATELET VOLUME 7.8 fL (7.4-10.4); MONOCYTES # (AUTO) 0.48 x10^3/uL (0.2-0.8); MONOCYTES % (AUTO) 4 % (2-9); NEUTROPHILS # (AUTO) 9.32 x10^3/uL (1.8-6.8); NEUTROPHILS % (AUTO) 84 % (42-75); PLATELET COUNT 186 x10^3/uL (130-400); RED BLOOD COUNT 4.49 x10^6/uL (4.38-5.82); RED CELL DISTRIBUTION WIDTH 14.5 % (9.4-14.8)
[2019-05-25] MEDS: D5%-0.9% NACL+KCL 20MEQ 1,000 ML IV SCH ×2 (07:00→16:04)
[2019-05-25] MEDS: LISINOPRIL 10 MG TABLET PO SCH (08:17)
[2019-05-25] MEDS: ATORVASTATIN 10 MG TABLET PO SCH (08:17)
[2019-05-25] MEDS: LACTOBACILLUS CHEW TABLET PO SCH (08:17)
[2019-05-25] MEDS: SENNA/DOCUSATE TABLET PO SCH (08:17)
[2019-05-25 11:07] VITALS: BP 104/68
[2019-05-25] MEDS: SIMETHICONE 125 MG CHEW TAB PO PRN (15:11)
[2019-05-25 15:26] VITALS: BP 120/69
[2019-05-25 19:13] VITALS: BP 96/61
[2019-05-25] MEDS: CYCLOBENZAPRINE 10 MG TABLET PO SCH (21:00)
[2019-05-26] MEDS: KETOROLAC 30 MG/1 ML IM/IV SCH ×3 (00:27→16:40)
[2019-05-26] MEDS: hydrOXyzine 50MG TABLET PO SCH (00:27)
[2019-05-26] MEDS: METHOCARBAMOL 750 MG TABLET PO SCH ×3 (02:00→16:07)
[2019-05-26 02:02] VITALS: BP 138/92
[2019-05-26] MEDS: METHOCARBAMOL 750 MG in DEXTROSE 5% 100 ML IV SCH ×3 (02:07→16:41)
[2019-05-26 02:52] VITALS: BP 133/77
[2019-05-26] MEDS: D5%-0.9% NACL+KCL 20MEQ 1,000 ML IV SCH ×3 (03:00→23:00)
[2019-05-26 05:41] LABS: MEAN CORPUSCULAR HGB CONC 32.4 g/dL (33.2-36.2); MEAN CORPUSCULAR VOLUME 92.7 fL (81-97); MEAN PLATELET VOLUME 7.9 fL (7.4-10.4); PLATELET COUNT 197 x10^3/uL (130-400); RED BLOOD COUNT 4.47 x10^6/uL (4.38-5.82); RED CELL DISTRIBUTION WIDTH 14.8 % (9.4-14.8)
[2019-05-26 06:10] LABS: BASOPHILS # (AUTO) 0.02 x10^3/uL (0-0.1); BASOPHILS % (AUTO) 0 % (0-1); EOSINOPHILS % (AUTO) 0 % (1-7); LYMPHOCYTES # (AUTO) 1.24 x10^3/uL (1-3.4); LYMPHOCYTES % (AUTO) 9 % (22-44); MD SCAN; MONOCYTES # (AUTO) 0.82 x10^3/uL (0.2-0.8); MONOCYTES % (AUTO) 6 % (2-9); NEUTROPHILS # (AUTO) 11.73 x10^3/uL (1.8-6.8); NEUTROPHILS % (AUTO) 85 % (42-75)
[2019-05-26] MEDS: GABAPENTIN 300 MG CAPSULE PO SCH ×3 (07:21→21:20)
[2019-05-26] MEDS: LACTOBACILLUS CHEW TABLET PO SCH (08:24)
[2019-05-26] MEDS: LISINOPRIL 10 MG TABLET PO SCH (08:25)
[2019-05-26] MEDS: ATORVASTATIN 10 MG TABLET PO SCH (08:25)
[2019-05-26] MEDS: SENNA/DOCUSATE TABLET PO SCH (08:25)
[2019-05-26] MEDS: CEFAZOLIN PMX 2GM/100ML 100 ML IVPB SCH ×2 (12:10→19:58)
[2019-05-26 14:33] VITALS: BP 127/79
[2019-05-26 19:39] VITALS: BP 130/79
[2019-05-26] MEDS: CYCLOBENZAPRINE 10 MG TABLET PO SCH (21:00)
[2019-05-27] MEDS: hydrOXyzine 50MG TABLET PO SCH (00:26)
[2019-05-27 03:30] VITALS: BP 120/75
[2019-05-27] MEDS: CEFAZOLIN PMX 2GM/100ML 100 ML IVPB SCH ×2 (03:35→11:47)
[2019-05-27] MEDS: METHOCARBAMOL 750 MG TABLET PO SCH ×3 (03:35→17:02)
[2019-05-27 05:30] LABS: MEAN CORPUSCULAR HEMOGLOBIN 30.5 pg (27.5-34.5); MEAN CORPUSCULAR HGB CONC 32.8 g/dL (33.2-36.2); MEAN CORPUSCULAR VOLUME 93.1 fL (81-97); MEAN PLATELET VOLUME 7.9 fL (7.4-10.4); PLATELET COUNT 200 x10^3/uL (130-400); RED BLOOD COUNT 4.52 x10^6/uL (4.38-5.82); RED CELL DISTRIBUTION WIDTH 14.9 % (9.4-14.8)
[2019-05-27 06:14] LABS: BASOPHILS # (AUTO) 0.03 x10^3/uL (0-0.1); BASOPHILS % (AUTO) 0 % (0-1); EOSINOPHILS % (AUTO) 0 % (1-7); LYMPHOCYTES # (AUTO) 1.47 x10^3/uL (1-3.4); LYMPHOCYTES % (AUTO) 11 % (22-44); MD SCAN; MONOCYTES # (AUTO) 1.02 x10^3/uL (0.2-0.8); MONOCYTES % (AUTO) 8 % (2-9); NEUTROPHILS # (AUTO) 10.39 x10^3/uL (1.8-6.8); NEUTROPHILS % (AUTO) 81 % (42-75)
[2019-05-27 06:30] VITALS: BP 126/86
[2019-05-27] MEDS: GABAPENTIN 300 MG CAPSULE PO SCH ×3 (07:10→21:27)
[2019-05-27] MEDS: ATORVASTATIN 10 MG TABLET PO SCH (08:23)
[2019-05-27] MEDS: LISINOPRIL 10 MG TABLET PO SCH (08:23)
[2019-05-27] MEDS: SENNA/DOCUSATE TABLET PO SCH (08:23)
[2019-05-27] MEDS: LACTOBACILLUS CHEW TABLET PO SCH (08:23)
[2019-05-27] MEDS: D5%-0.9% NACL+KCL 20MEQ 1,000 ML IV SCH ×2 (08:24→19:00)
[2019-05-27 12:29] VITALS: BP 125/80
[2019-05-27 19:52] VITALS: BP 124/82
[2019-05-27] MEDS: CYCLOBENZAPRINE 10 MG TABLET PO SCH (21:00)
[2019-05-27] MEDS: CEFAZOLIN PMX 2GM/50ML 50 ML IVPB SCH (21:47)
[2019-05-28] MEDS: SIMETHICONE 125 MG CHEW TAB PO PRN (01:54)
[2019-05-28 01:55] VITALS: BP 118/80
[2019-05-28] MEDS: hydrOXyzine 50MG TABLET PO SCH (01:55)
[2019-05-28] MEDS: METHOCARBAMOL 750 MG TABLET PO SCH ×2 (02:00→10:00)
[2019-05-28] MEDS: D5%-0.9% NACL+KCL 20MEQ 1,000 ML IV SCH (05:00)
[2019-05-28 05:12] LABS: BASOPHILS # (AUTO) 0.02 x10^3/uL (0-0.1); BASOPHILS % (AUTO) 0 % (0-1); EOSINOPHILS # (AUTO) 0.05 x10^3/uL (0-0.4); EOSINOPHILS % (AUTO) 1 % (1-7); LYMPHOCYTES # (AUTO) 2.79 x10^3/uL (1-3.4); LYMPHOCYTES % (AUTO) 31 % (22-44); MD NO; MEAN CORPUSCULAR HEMOGLOBIN 31.1 pg (27.5-34.5); MEAN CORPUSCULAR HGB CONC 33.3 g/dL (33.2-36.2); MEAN CORPUSCULAR VOLUME 93.3 fL (81-97); MEAN PLATELET VOLUME 7.8 fL (7.4-10.4); MONOCYTES # (AUTO) 0.88 x10^3/uL (0.2-0.8); MONOCYTES % (AUTO) 10 % (2-9); NEUTROPHILS # (AUTO) 5.29 x10^3/uL (1.8-6.8); NEUTROPHILS % (AUTO) 59 % (42-75); PLATELET COUNT 201 x10^3/uL (130-400); RED BLOOD COUNT 4.72 x10^6/uL (4.38-5.82)
[2019-05-28] MEDS: CEFAZOLIN PMX 2GM/50ML 50 ML IVPB SCH ×2 (05:30→13:30)
[2019-05-28] MEDS: GABAPENTIN 300 MG CAPSULE PO SCH (06:43)
[2019-05-28 07:15] VITALS: BP 134/80
[2019-05-28] MEDS: ATORVASTATIN 10 MG TABLET PO SCH (08:00)
[2019-05-28] MEDS: LACTOBACILLUS CHEW TABLET PO SCH (08:00)
[2019-05-28] MEDS: SENNA/DOCUSATE TABLET PO SCH (08:01)
[2019-05-28] MEDS: LISINOPRIL 10 MG TABLET PO SCH (08:01)
[2019-05-28 12:05] VITALS: BP 107/74
[2019-05-28] MEDS ORDERED: CEPH-368 PO (14:13)
[2019-05-28] MEDS ORDERED: OXYC5CAP2 PO (14:14)
== END 2019-05-28 15:16 | disposition home health service (06) | DRG 519 ==
LOC: ORIP 10:10 → 4NOR 17:32 → 4NW 05-28 07:10 → DCLOUNGE 05-28 15:08
PROVIDERS: ADMIT Orthopaedic Surgery Orthopaedic Surgery of the Spine; ATTEND Orthopaedic Surgery Orthopaedic Surgery of the Spine
PROC: 00NY0ZZ Release Lumbar Spinal Cord, Open Approach (ICD-10-PCS; 2019-05-24)
PROC: 0SU Lower Joints, Supplement (ICD-10-PCS; 2019-05-24)
PROC: 0SP004Z Removal of Internal Fixation Device from Lumbar Vertebral Joint, Open Approach (ICD-10-PCS; 2019-05-24)
PROC: 4A11X4G Monitoring of Peripheral Nervous Electrical Activity, Intraoperative, External Approach (ICD-10-PCS; 2019-05-24)
PROC: 01NB0ZZ Release Lumbar Nerve, Open Approach (ICD-10-PCS; principal; 2019-05-24 11:30)
DX: T84.84XA Pain due to internal orthopedic prosthetic devices, implants and grafts, initial encounter (principal); G95.29 Other cord compression; M48.061 Spinal stenosis, lumbar region without neurogenic claudication; M17.12 Unilateral primary osteoarthritis, left knee; Y83.1 Surgical operation with implant of artificial internal device as the cause of abnormal reaction of the patient, or of later complication, without mention of misadventure at the time of the procedure; Y92.89 Other specified places as the place of occurrence of the external cause; I49.5 Sick sinus syndrome; M51.16 Intervertebral disc disorders with radiculopathy, lumbar region; I25.10 Atherosclerotic heart disease of native coronary artery without angina pectoris
CPT/HCPCS: 36415; 85025; G0378; J0690; J1100; J1885; J2250; J2405; J2704; J3010; J3370; C1760; C1762; C9362; J1030; J2800; J3480; J7120

== ENCOUNTER 2019-09-16 12:22 | Outpatient (CLI) | payer MEDICARE ==
[~2019-09-16 12:22] MED LIST changes: -BACITRACIN 50,000 UNIT ONE; -BUPIVACAINE/EPI 0.5% 1:200K ONE; +CEPH-368 PO; +OXYC5CAP2 PO; -THROMBIN (RECOMBINANT) 20,000 UNIT VIAL TP ONE; -TRANEXAMIC ACID 100 MG/ML, 10ML ONE; -VANCOMYCIN 1,000 MG ONE
[2019-09-16 12:45] LABS: BASOPHILS # (AUTO) 0.02 x10^3/uL (0-0.1); BASOPHILS % (AUTO) 0 % (0-1); EOSINOPHILS # (AUTO) 0.26 x10^3/uL (0-0.4); EOSINOPHILS % (AUTO) 4 % (1-7); LYMPHOCYTES # (AUTO) 3.24 x10^3/uL (1-3.4); LYMPHOCYTES % (AUTO) 54 % (22-44); MD NO; MEAN CORPUSCULAR HEMOGLOBIN 30.4 pg (27.5-34.5); MEAN CORPUSCULAR HGB CONC 33.5 g/dL (33.2-36.2); MEAN CORPUSCULAR VOLUME 90.6 fL (81-97); MEAN PLATELET VOLUME 7.5 fL (7.4-10.4); MONOCYTES # (AUTO) 0.52 x10^3/uL (0.2-0.8); MONOCYTES % (AUTO) 9 % (2-9); NEUTROPHILS # (AUTO) 2.01 x10^3/uL (1.8-6.8); NEUTROPHILS % (AUTO) 33 % (42-75); PLATELET COUNT 209 x10^3/uL (130-400); RED CELL DISTRIBUTION WIDTH 15.1 % (9.4-14.8)
[2019-09-16 12:53] LABS: ALANINE AMINOTRANSFERASE 24 U/L (12-78); ALBUMIN 4.3 g/dL (3.4-5.0); ANION GAP 6 mmol/L (5-15); CALCIUM 8.8 mg/dL (8.5-10.1); CHLORIDE 108 mmol/L (98-107); CHOLESTEROL, TOTAL 170 mg/dL (140-239); CREATININE 1.12 mg/dL (0.7-1.3)
[2019-09-16 12:55] LABS: ALKALINE PHOSPHATASE 99 U/L (45-117); BILIRUBIN,TOTAL 0.9 mg/dL (0.2-1.0); CHOL/HDL RATIO 3.6; HDL CHOL % 28 % (26-37); HDL CHOLESTEROL (DIRECT) 47 mg/dL (40-60); LDL CHOLESTEROL,CALCULATED 93 mg/dL (54-169); TOTAL PROTEIN 7.3 g/dL (6.4-8.2); TRIGLYCERIDES 149 mg/dL (50-200); VLDL CHOLESTEROL 30 mg/dL (0-25)
== END 2019-09-16 23:59 | disposition home or self-care (01) ==
LOC: LAB 12:22 → RAD 23:59
PROVIDERS: ATTEND Internal Medicine
DX: Z12.5 Encounter for screening for malignant neoplasm of prostate (principal); N20.0 Calculus of kidney; E78.5 Hyperlipidemia, unspecified; I10 Essential (primary) hypertension
CPT/HCPCS: 36415; 74018; 80053; 80061; 85025; G0103